=== PATIENT | male | born 1960 | race Caucasian/White ===

== ENCOUNTER 2025-01-11 05:20 | Emergency (ER) | payer BC, SELFPAY ==
[2025-01-11 05:24] VITALS: BP 151/89; PULSE 68; RESP 18; TEMP 36.6; O2SAT 100; BMI 31.0
--- NOTE | 2025-01-11 05:56 | CT_ITS ---
PROCEDURE: CTA HEAD AND NECK W/ CONTRAST 01/11/2025 REASON FOR EXAM: TIA TECHNIQUE: Procedure Code: CTCTA.HDNCK Modality: CT Procedure: CTA HEAD AND NECK W/ CONTRAST Multiplanar Sagittal and Coronal images were obtained. CONTRAST: OMNIPAQUE 350 VOLUME: 100 mL One or more dose reduction techniques were used (e.g., Automated exposure control, adjustment of the mA and/or kV according to patient size, use of iterative reconstruction technique). RADIATION DOSE SUMMARY: CTDlvol: 18.57 mGy DLP: 730 mGycm COMPARISON: None. FINDINGS: Normal bilateral petrous carotid arteries. Mild calcified atheromatous plaques of the right cavernous carotid artery with a normal supraclinoid bifurcation. Mild calcified atheromatous plaques of the left cavernous carotid artery with a normal supraclinoid bifurcation. Normal right A1 segments of the anterior cerebral artery. Normal left A1 segments of the anterior cerebral artery. Normal intact anterior communicating artery (ACOM). Normal bilateral A2 segments of the anterior cerebral arteries. Normal right M1 and M2 segments of the middle cerebral arteries, with a normal M1 bifurcation. Normal left M1 and M2 segments of the middle cerebral arteries, with a normal M1 bifurcation. Normal right posterior communicating artery (PCOM). Normal left posterior communicating artery (PCOM). Normal bilateral vertebral arteries. Normal basilar artery with a normal basilar bifurcation. The visualized bilateral superior cerebellar (SCA) arteries are normal. Normal bilateral P1, P2 and visualized P3 segments of the posterior cerebral arteries. There is no demonstrated aneurysm of the [place]. There is no major vessel occlusion or hemodynamically significant stenosis. There is no demonstrated abnormality of the visualized brain. Technique: Axial CT angiographic images of the neck. Reformatted coronal and sagittal images. 3D, MIP images. Reconstructed images were reviewed on a different workstation by radiologist. RIGHT CAROTID ARTERIES: Normal right common carotid artery (CCA). Normal right common carotid bulb. Normal origin of the right internal carotid (ICA) artery without a hemodynamically significant stenosis. Normal visualized cervical portion of the right internal carotid artery. Normal origin of the right external carotid artery (ECA). LEFT CAROTID ARTERIES: Normal left common carotid artery (CCA). Normal left common carotid bulb. Normal origin of the left internal carotid (ICA) artery without a hemodynamically significant stenosis. Normal visualized cervical portion of the left internal carotid artery. Normal origin of the left external carotid artery (ECA). VERTEBRAL ARTERIES: Normal bilateral vertebral artery without a hemodynamically significant stenosis. CT/CTA Head AND Neck W/ Contrast IMPRESSION: Normal bilateral cervical carotid and vertebral arteries. IMPRESSION: No evidence of high-grade stenosis. Reading Location: [place] [id number]
--- NOTE | 2025-01-11 05:57 | EKG12_ITS ---
Test Reason : ARHYTHMIA Blood Pressure : */* mmHG Vent. Rate : 63 BPM Atrial Rate : 63 BPM P-R Int : 152 ms QRS Dur : 160 ms QT Int : 426 ms P-R-T Axes : 51 -10 21 degrees QTcB Int : 435 ms Normal sinus rhythm Right bundle branch block Abnormal ECG Confirmed by EMANUEL SENIOR, MICHAEL ([id number]), editor newspaper [employer] [facility] ([id number]) on 01/14/2025 6:21:06 AM Referred By: KHUSHI Confirmed By: MICHAEL CASTELLANOS MD
[2025-01-11] MEDS: 0.9% Normal Saline (1000mL) 1,000 ML 999 ML IV (06:09)
[2025-01-11 06:22] LABS: Hematocrit 40.9 % (40-54); Hemoglobin 13.7 g/dL (13.0-16.5); Immature Granulocytes Count 0.020 X10^3/uL (0.0-0.0); Mean Corp Hgb Conc 33.5 g/dL (32-36); Mean Corpuscular Volume 83.3 fL (80-94); Mean Platelet Vol. 8.8 fl (6.2-12.0); NRBC Flagged by Analyzer 0 % (0-5); Platelet Count 206 K/mm3 (150-450); RBC Distribution Width CV 13.8 % (11.6-14.6); RBC Distribution Width SD 41.7 fl (35.1-43.9); Red Blood Count 4.91 M/mm3 (4.6-6.2); White Blood Count 5.1 K/mm3 (4.4-11.0)
[2025-01-11 06:23] VITALS: BP 150/78; PULSE 73; RESP 18; O2SAT 100
[2025-01-11 06:53] LABS: Anion Gap 10 (5-15); BUN 18 mg/dL (4-19); BUN/Creat Ratio 20.9 RATIO (10-20); Calcium,Total 8.9 mg/dL (7.6-11.0); Carbon Dioxide 23.4 mmol/L (21.0-32.0); Chloride 106 mmol/L (98-108); Estimated Creatinine Clearance 106.87 ml/min (50-250); Glucose 108 mg/dL (70-99); Magnesium 2.3 mg/dL (1.5-2.2); Potassium 3.9 mmol/L (3.3-5.1)
[2025-01-11 06:58] LABS: Prothrombin Time (Protime)PT. 13.5 SECONDS (11.7-14.9)
[2025-01-11 06:59] LABS: Partial Thromboplast Time 27.9 Seconds (24.1-36.2)
--- NOTE | 2025-01-11 07:28 | EDS_ITS ---
HPI History of Present Illness Chief Complaint: Neuro S/Sx Narrative Narrative: Patient is a 64-year-old male with past medical history of a bundle branch block. He states that he does not have a diagnosed medical condition of hypertension but his blood pressure has been running higher over the last few weeks. He states he went to bed normally and then awoke this morning as he normally would. He states he was doing his normal routine such as feeding his cats. He states that he was talking to them and then noticed that his speech was slurred. He states that he did not have any localized arm weakness or numbness. He states that there was no obvious facial droop when he looked in the mirror. He states that the symptoms concerning for potential stroke and therefore he called EMS. EMS states when they arrived his symptoms had resolved. Patient does confirm this and states symptoms lasted approximately 10 to 15 minutes. He denies any history of abnormal cardiac rhythm and states he did not experience any type of palpitations. However as he had concern for TIA versus stroke he was brought in for evaluation [facility] Medical History (Updated 01/15/25 @ 05:[address] Diogo Cardona, DO) Hypoglycemia Bronchitis Right bundle branch block Home Medications ?Medication ?Instructions ?Recorded ?Last Taken ?Type cetirizine 10 mg tablet (Zyrtec) 10 mg PO DAILY Unknown History ibuprofen 200 mg tablet 200 mg PO Q12H 01/11/25 Unkn own History Allergy/AdvReac Type Severity Reaction Status Date / Time acyclovir (From Zovirax) Allergy Unknown PT UNSURE Verified 01/11/25 05:24 OF REACTION Surgical History (Updated 01/11/25 @ 05:26 by Migel Mcneil) History of hernia surgery Social History Smoking Status: Never smoker ROS ROS ED Constitutional Constitutional ED: Denies chills or fever(s) Eyes Eyes: Denies blurry vision or change in vision ENT ENT ED: Denies rhinorrhea or sore throat Cardiovascular Cardiovascular: Denies chest pain, palpitations or racing heartbeat Respiratory/Chest Respiratory/Chest: Denies cough or dyspnea Gastrointestinal Gastrointestinal: Denies abdominal pain, diarrhea, nausea or vomiting Musculoskeletal Musculoskeletal: Denies myalgias Integumentary Denies rash Neurologic Neurologic: Reports other Details: Positive slurred speech ; Denies headache(s), paresthesias or weakness Hematologic/Lymphatic Hematologic/Lymphatic: Denies easy bleeding or easy bruising EXAM Physical Exam Const Vital Signs: 01/11/25 05:24 01/11/25 06:23 Temperature 97.8 F Temperature Source Oral Pulse Rate 68 73 Respiratory Rate 18 18 Blood Pressure 151/89 H 150/78 H Blood Pressure Mean 109 102 Pulse Ox 100 100 Oxygen Delivery Method Room Air Room Air Positive well nourished and well developed General Appearance ED: well developed; Negative for pallor HEENT HEENT Narrative: Normocephalic atraumatic No tongue or lip swelling no oral lesions no airway edema or compromise No tongue or cheek biting to suggest seizure activity Eyes PERRL and EOMs intact bilaterally General Eye ED: Negative for scleral icterus Neck supple Resp normal respiratory effort and clear to auscultation bilaterally Cardio regular rate and regular rhythm Rate: other Other Details: Heart is regular rate and rhythm Radial and carotid pulses are equal and symmetric No carotid bruit noted GI normal to inspection, nondistended, normoactive bowel sounds, non-tender, non- distended and no masses Auscultation: normoactive bowel sounds Palpation: soft Extremity normal to inspection Extremity Narrative: No asymmetric edema no pitting edema negative Homans' sign bilaterally Neuro oriented x3, CN's II-XII intact bilaterally and no sensory deficits noted Neuro Narrative: GCS of 15 Cranial nerves II through XII are grossly intact without focal neurologic deficit No pronator drift no dysmetria no truncal ataxia NIH stroke scale score of 0 Sensorium / Orientation: alert Motor Exam: strength 5/5 throughout Psych mental status grossly normal Skin no rashes or lesions noted General Skin Exam: Negative for jaundice or pallor MDM MDM MDM Narrative Medical decision making narrative: Patient arrived to the ER mildly hypertensive but otherwise with stable vitals. He reported a 10 to 15-minute episode while at home where he felt his speech was slurred. Unfortunately he lives alone and there was no one to corroborate his slurred speech. And by the time EMS arrived symptoms have resolved. With patient reporting slurred speech for 10 to 15 minutes with spontaneous resolution symptoms are most consistent with a transient ischemic attack. As he also reports he has been having bouts of high blood pressure without confirmed diagnosis there is concern he could have acute kidney injury or Carrie abnormality or potential spontaneous subarachnoid or subdural hemorrhage or even a carotid dissection. Secondary to this basic labs were obtained with a CTA of the head and neck. Labs revealed no clinically significant findings. CTA r evealed no LVO or signs of stenosis or dissection. On reevaluation the patient is resting comfortably his blood pressure has improved slightly. His neurologic exam remains normal with NIH stroke scale score of 0. We discussed potential admission for continued evaluation. However the patient has been symptom-free for the last few hours and his workup is overall negative. He states he would prefer to have this evaluated as an outpatient versus inpatient as his workup is negative and his symptoms have remained gone. The patient was advised to take a baby aspirin once a day secondary to this event and will follow-up with neurology. for further evaluation History & Record Review Discussion w/independent historian: EMS personnel and Patient Lab Data Attestation: I reviewed the patient's lab results. Labs: Laboratory Results - last 24 hr 01/11/25 06:08 WBC 5.1 RBC 4.91 Hgb 13.7 Hct 40.9 MCV 83.3 MCH 27.9 MCHC 33.5 RDW Std Deviation 41.7 RDW Coeff of Maikol 13.8 Plt Count 206 MPV 8.8 Immature Gran % (Auto) 0.400 Neut % (Auto) 69.3 Lymph % (Auto) 15.2 L [place] % (Auto) 11.7 H Eos % (Auto) 2.8 Baso % (Auto) 0.6 Absolute Neuts (auto) 3.5 Absolute Lymphs (auto) 0.77 L Nucleated RBC % 0 PT 13.5 INR 1.0 APTT 27.9 Sodium 140 Potassium 3.9 Chloride 106 Carbon Dioxide 23.4 Anion Gap 10 BUN 18 Creatinine 0.87 Estim Creat Clear Calc 106.87 Est GFR (MDRD) Non-Af 96 BUN/Creatinine Ratio 20.9 H Glucose 108 H Calcium 8.9 Magnesium 2.3 H Radiography Diagnostic Testing: Clinical Impression(s) from Imaging Studies Head/Neck CTA 01/11/25 05:56 IMPRESSION: Normal bilateral cervical carotid and vertebral arteries. IMPRESSION: No evidence of high-grade stenosis. Reading Location: [place] [id number] Discharge Plan Triage Chief Complaint: Neuro S/Sx ED Provider: Diogo Cardona Dx/Rx/DC Orders Clinical Impression: TIA (transient ischemic attack), Hypertension, Right bundle branch block Instructions: TIA Dc, ED Hypertension, To Be Confirmed Prescriptions: No Action cetirizine [Zyrtec] 10 mg tablet 10 mg PO DAILY ibuprofen 200 mg tablet 200 mg PO Q12H Primary Care Provider: Rena An Referrals: Rena An MD [Primary Care Provider, Medical] Activity Restrictions/Additional Instructions: Your CT scan revealed no sign of vessel blockage/injury or acute stroke. Your labs revealed no clinically significant finding. Please take a baby aspirin once daily as your history is consistent with a TIA. Follow-up with your family doctor to discuss further testing such as a carotid duplex and/or MRI. Continue to trend your blood pressure so that your family doctor may further evaluate you to see if you need hypertensive medication. Return to the ER should you have any further concerns or worsening of symptoms Print Language: K[place] Disposition Disposition: Home, Self Care Discharge Date/Time: 01/11/25 08:01
[2025-01-11 08:00] VITALS: BP 144/86; PULSE 75; RESP 16; TEMP 36.8; O2SAT 98
== END 2025-01-11 08:01 | disposition home or self-care (01) ==
PROVIDERS: Emergency Provider Emergency Medicine; PCP Internal Medicine; Visit Provider Emergency Medicine
DX: G45.9 Transient cerebral ischemic attack, unspecified (principal); I45.10 Unspecified right bundle-branch block; I10 Essential (primary) hypertension
CPT/HCPCS: 70496; 70498; 80048; 83735; 85025; 85610; 85730; 93005; 96360; 99285; Q9967; A4216